=== PATIENT | female | born 1940 | race Caucasian/White ===

== ENCOUNTER → 2016-05-05 | Outpatient (CLI) | payer MEDICARE, MEDICAID ==
[~2016-05-05] MED LIST: ASPIRIN LO-DOSE81 MG PO; CARDIZEM CD360 MG PO; CORDARONE,PACE200 MG PO; DAILY MULTIPLE1 EAC1 PO; DEMADEX20 MG PO; FEOSOL325 MG PO; GLUCOPHAGE1000 MG PO; LASIX40 MG PO; LEVEMIR FL100 UNIT/1 SUB-Q; LEVOTHROID (S200 MCG PO; LEXAPRO20 MG PO; LOPRESSOR50 MG PO; LUTEIN20 MG PO; PRAVACHOL40 MG PO; XARELTO15 MG PO; ZETIA10 MG PO
== END | disposition disaster alternative care site (69) ==
LOC: GRAD 13:00
DX: S06.6X0D Traumatic subarachnoid hemorrhage without loss of consciousness, subsequent encounter (principal); X58.XXXD Exposure to other specified factors, subsequent encounter